=== PATIENT | male | born 1960 | race Caucasian/White ===

== ENCOUNTER 2023-07-17 12:19 | Outpatient (CLI) | payer BC ==
[~2023-07-17 12:19] MED LIST: Iopamidol 300 61% 100 ML VIAL FS ONE
== END 2023-07-17 12:20 | disposition home or self-care (01) ==
LOC: CSHCT 12:19
PROVIDERS: ATTEND Psychiatry & Neurology Neurology
DX: R93.89 Abnormal findings on diagnostic imaging of other specified body structures (principal)
CPT/HCPCS: 71270; 82565